=== PATIENT | male | born 1965 | race Caucasian/White ===

== ENCOUNTER 2017-03-16 19:15 | Emergency (ER) | payer OTHER ==
[2017-03-16 19:27] VITALS: RESP 18; TEMP 98.7; O2SAT 99
--- NOTE | 2017-03-16 20:25 | ED PDOC ---
Upper Extremity Pain/Injury Time Seen by Provider: 03/16/17 19:37 Chief Complaint (Nursing): Finger,Hand,&Wrist Chief Complaint (Provider): Left finger pain History Per: Patient History/Exam Limitations: no limitations Onset/Duration Of Symptoms: Sudden Onset Current Symptoms Are (Timing): Still Present Quality: "Pain" Additional Complaint(s): Robby Miller is a 51 y/o male presenting to the ER on 03/16/2017 with complaints of a laceration to his left first digit. Patient reports a door slammed and caught his finger while at work, causing a laceration. Patient states he is able to move the inflicted area freely. Last tetanus is unknown Past Medical History Vital Signs: Last Vital Signs Temp 98.7 F 03/16/17 19:22 Pulse 95 H 03/16/17 19:22 Resp 18 03/16/17 19:22 BP 149/99 H 03/16/17 19:22 Pulse Ox 99 03/16/17 19:22 - Medical History PMH: HTN Denies: Chronic Kidney Disease - Home Medications Home Medications: Ambulatory Orders Medication Instructions Recorded Losartan Potassium [Losartan 50 mg PO DAILY 04/03/15 Potassium] amLODIPine [Norvasc] 5 mg PO DAILY 04/03/15 - Allergies Allergies/Adverse Reactions: Allergies Allergy/AdvReac Type Severity Reaction Status Date / Time No Known Allergies Allergy Verified 03/16/17 19:22 Review of Systems ROS Statement: Except As Marked, All Systems Reviewed And Found Negative Constitutional: Negative for: Fever, Chills Musculoskeletal: Positive for: Hand Pain ((+) left finger pain ) Neurological: Negative for: Weakness, Numbness Physical Exam - Reviewed Nursing Documentation Reviewed: Yes Vital Signs Reviewed: Yes - Physical Exam Appears: Positive for: Non-toxic, No Acute Distress Head Exam: Positive for: ATRAUMATIC, NORMOCEPHALIC Skin: Positive for: Normal Color. Negative for: Rash Eye Exam: Positive for: Normal appearance Neck: Positive for: Normal Extremity: Positive for: Normal ROM, Tenderness ((+) ttp to left first middle portion of phalange ), Capillary Refill (normal), Other ((+) 0.5 superficial laceration to the posterior aspect left first digit. no active bleeding. sensation intact). Negative for: Deformity - ECG O2 Sat by Pulse Oximetry: 99 Medical Decision Making Medical Decision Makin:37 Initial Impression- 51 y/o male with laceration to left first digit Initial Plan- * Ibuprofen 600 mg * TDAP 0.5ml * XR Left Hand 20:41 XR Reviewed, shows no fractures, dislocations, or evidence of a foreign body. Wound was irrigated with NS. Dressing was applied. Pt will be discharged routinely. Pt was advised to keep the finger elevated and apply ice when needed. Condition is stable for discharge. Clinical Impression- Finger Injury Documented by Zak Nichols, acting as a scribe for Antonietta King PA-C All medical record entries made by the Scribe were at my direction and personally dictated by me. I have reviewed the chart and agree that the record accurately reflects my personal performance of the history, physical exam, medical decision making, and the department course for this patient. I have also personally directed, reviewed, and agree with the discharge instructions and disposition. Disposition - Clinical Impression Clinical Impression: Finger injury, Tetanus toxoid vaccination administered at current visit - Disposition Additional Instructions: Ice, elevation. Keep wound clean and dry with antibiotic ointment. Instructions: Abrasion (ED) Forms: [employer] (Japanese)
[2017-03-16 20:54] VITALS: BP 136/79; PULSE 83
--- NOTE | 2017-03-17 11:10 | RAD ---
PROCEDURE: Left Index finger radiographs. Caps at HISTORY: hand caught in door COMPARISON: None. TECHNIQUE: AP radiograph of the left hand, as well as spot oblique and lateral images of index finger were obtained. FINDINGS: LEFT INDEX FINGER: Normal left index finger, without fracture or focal lesion. Remainder of the left hand (as seen on the AP view) grossly intact. JOINTS: Normal. SOFT TISSUES: Normal. OTHER FINDINGS: None. IMPRESSION: No acute fracture or dislocation.
== END 2017-03-16 20:53 | disposition home or self-care (01) ==
LOC: H.ER 19:15
DX: S69.92XA Unspecified injury of left wrist, hand and finger(s), initial encounter (principal); W23.0XXA Caught, crushed, jammed, or pinched between moving objects, initial encounter; Y99.0 Civilian activity done for income or pay; Z23 Encounter for immunization; I10 Essential (primary) hypertension

== ENCOUNTER 2018-10-06 00:32 | Emergency (ER) | payer OTHER ==
[2018-10-06 02:49] LABS: BASO # 0.1 K/uL (0.0-0.2); EOS # 0.4 K/uL (0.0-0.7); EOS % 7.2 % (0.0-4.0); HEMOGLOBIN 14.3 g/dL (12.0-18.0); LYMPH % 33.9 % (20.0-40.0); MEAN CELL VOLUME 88.5 fl (80.0-94.0); MEAN CORPUSCULAR HGB CONC 32.7 g/dL (33.0-37.0); MEAN PLATELET VOLUME 9.3 fl (7.2-11.7); MONO # 0.5 K/uL (0.0-0.8); MONO % 8.8 % (0.0-10.0); NEUT # 2.9 K/uL (1.8-7.0); NEUT % 49.1 % (50.0-75.0); NRBC % 0.2 % (0.0-0.0); RBC 4.93 Mil/uL (4.40-5.90); RED CELL DISTRIBUTION WIDTH 14.2 % (11.5-14.5); WHITE BLOOD COUNT 5.8 K/uL (4.8-10.8)
[2018-10-06 02:52] LABS: PROTHROMBIN TIME 11.2 Seconds (9.8-13.1)
[2018-10-06 02:55] LABS: PARTIAL THROMBOPLASTIN TIME 39.3 Seconds (25.6-37.1)
[2018-10-06 02:59] LABS: ALBUMIN 3.6 g/dL (3.5-5.0); ALT/SGPT 41 U/L (21-72); AST/SGOT 25 U/L (17-59); BLOOD UREA NITROGEN 15 mg/dl (9-20); CALCIUM 9.3 mg/dL (8.4-10.2); GFR NON-AFRICAN AMERICAN > 60
--- NOTE | 2018-10-06 03:18 | ED PDOC ---
HPI: Chest Pain Time Seen by Provider: 10/06/18 00:56 Chief Complaint (Nursing): Chest Pain Chief Complaint (Provider): Chest Pain History Per: Patient History/Exam Limitations: no limitations Onset/Duration Of Symptoms: Hrs (x 3) Current Symptoms Are (Timing): Still Present Quality: "Pain" Associated Symptoms: denies: Nausea, Dyspnea, Diaphoresis Additional Complaint(s): 53 year old male with a history of HTN presents to the ED with chest pain, onset three hours ago. He reports acute, generalized anterior chest pain without radiation. Denies nausea, vomiting and diaphoresis. PMD: Dr. Singletary Past Medical History Reviewed: Historical Data, Nursing Documentation, Vital Signs Vital Signs: Last Vital Signs Temp 97.7 F 10/06/18 00:42 Pulse 80 10/06/18 00:42 Resp 17 10/06/18 00:42 BP 176/110 H 10/06/18 00:42 Pulse Ox 95 10/06/18 00:42 - Medical History PMH: HTN Denies: Chronic Kidney Disease - Surgical History Surgical History: No Surg Hx - Family History Family History: States: Unknown Family Hx - Social History Alcohol: Occasional (beer) - Home Medications Home Medications: Ambulatory Orders Medication Instructions Recorded Losartan Potassium 50 mg PO DAILY 04/03/15 amLODIPine [Norvasc] 5 mg PO DAILY 04/03/15 - Allergies Allergies/Adverse Reactions: Allergies Allergy/AdvReac Type Severity Reaction Status Date / Time No Known Allergies Allergy Verified 03/16/17 19:22 Review of Systems ROS Statement: Except As Marked, All Systems Reviewed And Found Negative Constitutional: Negative for: Sweats Cardiovascular: Positive for: Chest Pain Gastrointestinal: Negative for: Nausea, Vomiting Physical Exam - Reviewed Nursing Documentation Reviewed: Yes Vital Signs Reviewed: Yes - Physical Exam Appears: Positive for: Non-toxic, No Acute Distress Head Exam: Positive for: ATRAUMATIC, NORMAL INSPECTION, NORMOCEPHALIC Skin: Positive for: Normal Color, Warm, DRY Eye Exam: Positive for: EOMI, Normal appearance, PERRL Neck: Positive for: Normal, Painless ROM, Supple Cardiovascular/Chest: Positive for: Regular Rate, Rhythm. Negative for: Murmur Respiratory: Positive for: Normal Breath Sounds. Negative for: Respiratory Distress Gastrointestinal/Abdominal: Positive for: Normal Exam, Soft. Negative for: Tenderness Back: Positive for: Normal Inspection. Negative for: L CVA Tenderness, R CVA Tenderness Extremity: Positive for: Normal ROM. Negative for: Deformity Neurologic/Psych: Positive for: Alert, Oriented (x 3). Negative for: Motor/Sensory Deficits - Laboratory Results Result Diagrams: 10/06/18 02:44 10/06/18 02:44 Lab Results: PT 11.2 Seconds (9.8-13.1) 10/06/18 02:44 INR 1.0 10/06/18 02:44 APTT 39.3 Seconds (25.6-37.1) H 10/06/18 02:44 Troponin I < 0.0120 ng/mL (0.00-0.120) 10/06/18 02:44 Total Bilirubin 0.3 mg/dl (0.2-1.3) 10/06/18 02:44 AST 25 U/L (17-59) 10/06/18 02:44 ALT 41 U/L (21-72) 10/06/18 02:44 Alkaline Phosphatase 58 U/L (38-126) 10/06/18 02:44 Total Protein 7.3 G/DL (6.3-8.2) 10/06/18 02:44 Albumin 3.6 g/dL (3.5-5.0) 10/06/18 02:44 Globulin 3.7 gm/dL (2.2-3.9) 10/06/18 02:44 Albumin/Globulin Ratio 1.0 (1.0-2.1) 10/06/18 02:44 - ECG O2 Sat by Pulse Oximetry: 95 (RA) Pulse Ox Interpretation: Normal Medical Decision Making Medical Decision Makin:42 Impression: chest pain in setting of HTN Initial Plan: --CMP --CBC --EKG --CXR --Troponin --Urine dip 03:23 Labs reviewed and reveal no clinically significant abnormalities. Chest x-ray shows no active disease. Patient reports improvement of symptoms and is stable for discharge. Diagnosis is atypical chest pain. Scribe Attestation: Documented by Nancy Liu acting as a scribe for Reno Connelly MD Provider Scribe Attestation: All medical record entries made by the Scribe were at my direction and personally dictated by me. I have reviewed the chart and agree that the record accurately reflects my personal performance of the history, physical exam, medical decision making, and the department course for this patient. I have also personally directed, reviewed, and agree with the discharge instructions and disposition. Disposition - Clinical Impression Clinical Impression: Atypical chest pain, Hypertension - Disposition Disposition: Routine/Home Disposition Time: 03:20 Condition: STABLE Instructions: High Blood Pressure in Adults, Chest Pain That Is Not Caused by the Heart (DC) Forms: [employer] (French) Print Language: ARGENT[place]
--- NOTE | 2018-10-06 07:45 | RAD ---
Date of service: 10/06/2018 HISTORY: chest pain COMPARISON: 05/09/2016 FINDINGS: LUNGS: No active pulmonary disease. PLEURA: No significant pleural effusion identified, no pneumothorax apparent. CARDIOVASCULAR: No aortic atherosclerotic calcification present. Thoracic aorta is tortuous as before Normal cardiac size. No pulmonary vascular congestion. OSSEOUS STRUCTURES: No significant abnormalities. VISUALIZED UPPER ABDOMEN: Normal. OTHER FINDINGS: None. IMPRESSION: No active disease. No interval pathology noted.
[2018-10-06 09:31] VITALS: BP 141/81; PULSE 86; RESP 18; TEMP 98
--- NOTE | 2018-10-06 13:59 | CARD ---
APPROVED REPORT Date of service: 10/06/2018 EKG Measurement Heart [id number] <Conclusion> Normal sinus rhythm Normal ECG
[2018-10-06 22:51] VITALS: O2SAT 95
== END 2018-10-06 03:45 | disposition home or self-care (01) ==
LOC: H.ER 00:32
DX: R07.89 Other chest pain (principal); I10 Essential (primary) hypertension